=== PATIENT | male | born 1975 | race African-American/Black ===

== ENCOUNTER 2017-12-03 00:33 | Emergency (ER) | payer SELFPAY ==
[~2017-12-03] VITALS: Ht 182.9 cm; Wt 110.2 kg
[~2017-12-03 00:33] MED LIST: ATRIPLA1 TAB PO; BACTRIM DS TAB1 EAC1 ORAL; BACTRIM-DS1 EA PO; BENTYL10 MG ORAL; CEPHALEXIN500 MG PO; CIPROFLOXACIN500 M2 ORAL; CLINDAMYCIN HC150 MG ORAL; COLACE100 MG PO; DOXYCYCLINE MO100 MG ORAL; IBUPROFEN600 MG ORAL; LEVAQUIN500 MG ORAL; NAPROXEN375 MG PO; NORCO 5-325 TA1 EACH ORAL; NORCO 5/3251 TAB ORAL; RANITIDINE HCL150 MG ORAL; ZOFRAN ODT4 MG ORAL
[2017-12-03 00:45] VITALS: BP 107/66
--- NOTE | 2017-12-03 01:01 | Emergency Room Report ---
History of Present Illness General Chief Complaint: General Complaint Source: Patient Present Illness HPI Patient present with complaints of discomfort to the left leg he reports of the pain is better at this time however he at noticed more swelling than usual no left side He reports being diagnosed with a blood clot many years ago He does work compression stockings in the left leg secondary to his swelling Now more recently he felt a small knot distally on the medial aspect of the distal lower leg Denies any trauma Denies any knee pain Denies any fevers or chills Allergies: Coded Allergies: No Known Allergies (Verified Allergy, Unknown, 06/25/11) Patient History Past Medical History: see triage record Pertinent Family History: none Reviewed Nursing Documentation: PMH: Agreed, PSxH: Agreed Nursing Documentation-PMH Hx Cardiac Problems: Yes - History of blood clot in the left leg, hiv Hx Hypertension: No Hx Pacemaker: No Hx Asthma: No Hx COPD: No Hx Diabetes: No Hx Cancer: No Hx Gastrointestinal Problems: No Hx Dialysis: No Hx Neurological Problems: No Hx Cerebrovascular Accident: No Hx Seizures: No Review of Systems All Other Systems: negative except mentioned in HPI Physical Exam Vital Signs Date Time Temp Pulse Resp B/P (MAP) Pulse Ox O2 Delivery O2 Flow Rate FiO2 12/03/17 00:36 97.7 58 20 107/66 98 Room Air Sp02 EP Interpretation: reviewed, normal General Appearance: well appearing, no apparent distress Head: normocephalic, atraumatic Eyes: bilateral eye PERRL, bilateral eye EOMI ENT: normal pharynx Neck: supple Respiratory: lungs clear Cardiovascular #1: regular rate, rhythm Gastrointestinal: non tender Musculoskeletal: swelling - There is some dependent edema on the left leg compared to the right side Neurologic: alert, oriented x3 Skin: other - Small area of mild induration medially distal lower leg proximally 1 x 1 cm, mild associated erythema, generally also dependent edema on the left lower leg compared to the right Medical Decision Making Diagnostic Impression: Primary Impression: Chronic deep vein thrombosis (DVT) ER Course Patient's ultrasound reveals evidence of chronic appearing DVT no signs of any acute pathology patient has had previous knowledge of DVT Further investigation regarding pulmonary embolism is not made as the patient does not have any symptoms of that at this time is otherwise stable for close followup CT/MRI/US Diagnostic Results CT/MRI/US Diagnostic Results : Impression Lower extremity venous ultrasound: Chronic DVT, no acute findings Last Vital Signs Date Time Temp Pulse Resp B/P (MAP) Pulse Ox O2 Delivery O2 Flow Rate FiO2 12/03/17 00:36 97.7 58 20 107/66 98 Room Air Status: improved Disposition: HOME, SELF-CARE Condition: Improved Scripts Cephalexin* (KEFLEX*) 500 Mg Capsule 500 MG ORAL Q6H, #28 CAP 0 Refills Prov: SIS JOHNSON D.O. 12/03/17 Referrals: NON PHYSICIAN (PCP) Additional Instructions: Patient is provided with the discharge instructions notified to follow up with primary doctor in the next 2-3 days otherwise return to the er with any worsening symptoms. Please note that this report is being documented using [employer] technology. This can lead to erroneous entry secondary to incorrect interpretation by the dictating instrument. SIS JOHNSON D.O. Dec 03, 2017 01:01
[2017-12-03] MEDS ORDERED: KEFLEX500 MG ORAL (02:13)
[2017-12-03 02:22] VITALS: BP 107/66
--- NOTE | 2017-12-15 20:32 | Diagnostic Imaging Report ---
APPROVED REPORT CPT Code: 75916 Present Symptoms Lower Extremity Pain: Left LEFT LEG: Imaging of the left leg revealed chronic recanalized thrombus within the common femoral, superficial femoral, popliteal, and tibial segments. Doppler indicates normal spontaneous flow within these segments.The greater saphenous vein is within normal limits. Technically difficult study due to vessel depth (mid-thigh and calf area). Dr. Cabrera notified of results at 2:00 AM .
== END 2017-12-03 02:24 | disposition home or self-care (01) ==
LOC: EMR 00:51
DX: I82.512 Chronic embolism and thrombosis of left femoral vein (principal)
CPT/HCPCS: 93971; 99284